=== PATIENT | male | born 1975 | race Caucasian/White ===

== ENCOUNTER → 2016-08-29 | Outpatient (CLI) | payer BC ==
[~2016-08-29] MED LIST: AMT25 PO; CALC-393 PO; CHOLCAP5 PO; CLON0.5T3 PO; GADAVIST IV PRN; MELO15TA10 PO; MELO15TA4 PO; MULT-506 PO; NRN300 PO; OXYC1TAB3 PO; PROP40TA5 PO; SERT-234 PO; VNTHFA/IN INH; ZLF/100 PO
--- NOTE | 2016-08-29 13:07 | DIAGNOSTIC IMAGING REPORT ---
CT SCAN OF THE ABDOMEN AND PELVIS WITHOUT CONTRAST CLINICAL HISTORY: Non-Hodgkin's lymphoma COMPARISON STUDY: 07/26/2015 TECHNIQUE: CT scan of the abdomen and pelvis was performed from the lung bases to the proximal femurs. Images are reviewed in the axial, sagittal, and coronal planes. IV contrast was not administered for this examination. CT DOSE: 626.98 mGycm FINDINGS: Lower chest: The heart is normal in size and configuration, without pericardial effusion. The lung bases and pleural spaces are clear. Liver: The unenhanced liver is normal in size, contour, and attenuation. There is no intrahepatic biliary ductal dilatation. Gallbladder: Unremarkable. Spleen: The spleen measures 12 cm in length. No focal masses are visualized. Pancreas: There is a stable 5 mm hypodensity within the pancreatic tail. Adrenal glands: Unremarkable. Kidneys: The unenhanced kidneys are normal in size without hydronephrosis. There is no contour deforming renal mass lesion. No renal calculi are identified. Bowel: There are no transition zones indicate bowel obstruction. There is calcified appendicolith. There are no periappendiceal inflammatory changes. Peritoneum: There is no intraperitoneal free air or abdominal ascites. Vasculature: There is no evidence of abdominal aortic aneurysm. There is a left-sided inferior vena cava. Adenopathy: The lack of intravenous and oral contrast limits the study for the evaluation of pelvic lymphadenopathy. Soft tissue structures adjacent to the iliac vessels on the right, likely represent unopacified bowel loops. On subsequent studies, it would be beneficial to administer oral contrast. Pelvic viscera: The bladder, and pelvic viscera are unremarkable. Skeletal structures: There is an old fracture involving the lateral aspect of the L3 vertebra. IMPRESSION: 1. Sclerosis and old fracture deformity involving the right lateral aspect of the L3 vertebra 2. 12 cm spleen 3. Left-sided IVC 4. Stable 5 mm hypodensity within the pancreatic tail 5. Soft tissue structures within the pelvis abutting the right iliac vessels, likely representing unopacified bowel loops. As stated above, on subsequent studies. Would be beneficial to administer oral contrast to help differentiate bowel loops from adenopathy Electronically signed by: Steffen Gusman M.D. 08/29/2016 1:06 PM Dictated Date/Time: 08/29/2016 12:57 PM
--- NOTE | 2016-08-29 13:11 | DIAGNOSTIC IMAGING REPORT ---
CT OF THE CHEST WITHOUT IV CONTRAST CLINICAL HISTORY: Non-Hodgkin's lymphoma COMPARISON STUDY: Chest CT July 26, 2015 and PET/CT April 26, 2016. CT DOSE: 382.75 mGycm TECHNIQUE: Axial images of the chest were obtained without IV contrast. Images were reviewed in the axial, sagittal, and coronal planes. IV contrast was not administered for this examination. FINDINGS: A left subclavian [id number] is in place. No enlarged axillary, mediastinal or hilar lymph nodes are present. A 2 cm left lobe thyroid nodule is unchanged. The size of the heart is normal. There is no pericardial effusion. Left-sided gynecomastia is noted. The central airways are patent. There are no suspicious pulmonary nodules. No consolidation is present. No pneumothorax or pleural effusion is present. No suspicious osseous lesions are shown within the bony thorax. The abdomen and pelvis will be reported separately. IMPRESSION: No evidence of malignancy within the chest. No thoracic lymphadenopathy. Electronically signed by: Aba Sharp M.D. 08/29/2016 1:09 PM Dictated Date/Time: 08/29/2016 1:03 PM
--- NOTE | 2016-08-29 14:19 | DIAGNOSTIC IMAGING REPORT ---
LUMBAR SPINE MRI WITH AND WITHOUT CONTRAST HISTORY: NON HODGKIN'S LYMPHOMA/NO CONTRAST ON CT TECHNIQUE: Multiplanar multisequence MRI of the lumbar spine was performed both before and after the intravenous administration of contrast. COMPARISON: Lumbar spine MRI 06/20/2016. FINDINGS: For the purpose of the report the L5-S1 disc space will be located on axial image 26 of 28. Alignment and curvature intact. There are stable right-sided L3 vertebral body lesions resulting in a right sided pathologic compression fracture. These lesions demonstrate slight increased T2 signal and a small focus of enhancement best seen on axial image 13. This remains unchanged. No evidence for epidural extension. No new soft tissue masses or osseous lesion identified. The conus terminates at the L1-L2 disc space level. Fatty marrow replacement at the L2-L4 vertebral bodies consistent with prior radiation therapy. L1-L2: No significant central canal or neural foraminal narrowing. L2-L3: No significant central canal or neural foraminal narrowing. L3-L4: Small broad-based posterior disc bulge at L3-L4 without significant central canal or left-sided neural foraminal narrowing. There is moderate right-sided neural foraminal narrowing, unchanged. L4-L5: Small broad-based posterior disc bulge without central canal or neural foraminal narrowing. L5-S1: No significant central canal or neural foraminal narrowing. IMPRESSION: No significant change compared to the prior study. Right-sided L3 lesions are unchanged. No new vertebral body lesions or soft tissue masses identified. Electronically signed by: Ric Crawford M.D. 08/29/2016 2:17 PM Dictated Date/Time: 08/29/2016 2:04 PM
== END | disposition home or self-care (01) ==
LOC: C.CTS 12:31
PROVIDERS: ATTEND Internal Medicine Hematology & Oncology
DX: C85.10 Unspecified B-cell lymphoma, unspecified site (principal)

== ENCOUNTER → 2016-08-30 | Day surgery (SDC) | payer BC ==
[2016-08-23 15:50] VITALS: Ht 186.7 cm; Wt 93.2 kg
[~2016-08-30] VITALS: Ht 186.7 cm; Wt 93.2 kg
[~2016-08-30] MED LIST changes: -GADAVIST IV PRN; +IOPAMIDOL INJ 61% 15 ML VIAL ONE; +LIDOCAINE HCL 1% MPF 5 ML VIAL ONE; +SODIUM CHLORIDE 0.9% INJ 10 ML VIAL ONE
--- NOTE | 2016-08-30 14:02 | History & Physical Bridge - SC ---
H&P Re-Evaluation Bridge Note: I have examined the patient, reviewed the History & Physical and in the interval since the performance of the History & Physical I have noted the following changes of clinical significance: No changes noted
[2016-08-30 14:32] VITALS: BP 122/73; PULSE 67; TEMP 36.7; O2SAT 100
--- NOTE | 2016-08-30 14:37 | Discharge Instructions ---
Discharge Instructions Visit Reason for Visit: Lumbosacral Radiculopathy Discharge Discharge Diagnosis / Problem: Right leg pain Discharge Goals Goal(s): Decrease discomfort, Improve function Medications Stopped Medications Name(s): espinoza last dose sunday Activity Recommendations Activity Limitations: resume your previous activity Anesthesia . Post Anesthesia Instructions: If you have had General Anesthesia or IV Sedation: * Do not drive today. * Resume driving when surgeon permits. * Do not make important decisions or sign legal documents today. * Call surgeon for: 1. Temperature elevations greater than 101 degrees F. 2. Uncontrollable pain. 3. Excessive bleeding. 4. Persistent nausea and vomiting. 5. Medication intolerance (nausea, vomiting or rash). * For nausea and vomiting use only clear liquids such as: tea, soda, bouillon until nausea subsides, then gradually increase diet as tolerated. * If you have any concerns or questions, call your surgeon's office. If physician is unavailable and it is an emergency, call 911 or go to the nearest emergency room. . Diet Recommendations Recommended Home Diet: resume previous diet Procedures Procedures Performed: Lumbar Epidural Steroid Injection Pending Studies Studies pending at discharge: no Medical Emergencies . Who to Call and When: Medical Emergencies: If at any time you feel your situation is an emergency, please call 911 immediately. . Non-Emergent Contact Non-Emergency issues call your: Specialist . . "Provider Documentation" section prepared by Jose Francisco Sparks.
--- NOTE | 2016-08-30 15:02 | OPERATIVE REPORT ---
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 POSTOPERATIVE DIAGNOSIS: Same. PROCEDURE: Right paramedian L3-4 intralaminar epidural steroid injection under fluoroscopic guidance. INDICATIONS FOR PROCEDURE: The patient is a 41-year-old white male who presented to the clinic with complaints of radicular pain. His oncologist, Dr. Palomino, is treating him for the lymphoma. He presents today to provide him with an epidural injection to relieve some of the right lower extremity pain which is functionally limiting to him. PHYSICAL EXAMINATION: Pleasant male seated comfortably. He has some pain inhibition with testing of his right lower extremity. Intact sensation with a positive straight leg raise. CONSENT: Verbal and written consent was obtained from the patient. Risks and benefits were reviewed. Risks include but are not limited to epidural abscess, epidural hematoma, allergic reaction, dural puncture. The patient wishes to proceed. DESCRIPTION OF PROCEDURE: The patient was taken back to the special procedures room of the [facility] where he was maintained in a prone position. Backside was cleansed with chlorhexidine prep x3 and a dry sterile dressing was applied. Fluoroscope was used to identify the L3-4 intralaminar space and overlying skin on the right side was anesthetized with 4 mL of lidocaine 1% with a 25-gauge 1.5-inch needle. A 22-gauge 3.5-inch Tuohy needle was then directed down towards the intralaminar space. It was advanced under lateral fluoroscopic guidance and loss of resistance was noted at a depth of just over 6 cm. Isovue-300 contrast was not utilized given his sensitivity to IVP dye. He then underwent injection after negative aspiration of 40 mg of Depo-Medrol and 4 mL of preservative free sodium chloride. Injection was well tolerated. DISPOSITION: 1. The patient is taken out into the discharge recovery area where he will be discharged home once discharge criteria have been met. 2. Follow up in the [facility] office in 2-4 weeks. I attest to the content of the Intraoperative Record and any orders documented therein. Any exceptio ns are noted below.
== END | disposition home or self-care (01) ==
LOC: X.SURG 13:32
PROVIDERS: ATTEND Physical Medicine & Rehabilitation
DX: M54.16 Radiculopathy, lumbar region (principal); C83.38 Diffuse large B-cell lymphoma, lymph nodes of multiple sites

== ENCOUNTER 2016-09-03 17:50 | Emergency (ER) | payer BC ==
[~2016-09-03] VITALS: Ht 188 cm; Wt 96.4 kg
[~2016-09-03 17:50] MED LIST changes: -AMT25 PO; -CALC-393 PO; -CHOLCAP5 PO; -CLON0.5T3 PO; -IOPAMIDOL INJ 61% 15 ML VIAL ONE; -LIDOCAINE HCL 1% MPF 5 ML VIAL ONE; -MELO15TA4 PO; -MULT-506 PO; -OXYC1TAB3 PO; -PROP40TA5 PO; -SODIUM CHLORIDE 0.9% INJ 10 ML VIAL ONE; -VNTHFA/IN INH; -ZLF/100 PO
[2016-09-03 17:58] VITALS: TEMP 36.4; Ht 188 cm; Wt 96.4 kg
[2016-09-03 18:41] LABS: BASO % 0.3 %; BASO ABS # 0.02 K/uL (0-0.2); COMPLETE YES; EOS % 1.5 %; HEMATOCRIT 39.4 % (42-52); IG% 0.3 %; LYMPH % 27.5 %; LYMPH ABS # 1.62 K/uL (1.2-3.4); MEAN CELL VOLUME 86.8 fL (80-100); MEAN CORPUSCULAR HEMOGLOBIN 31.3 pg (25-34); MEAN PLATELET VOLUME 9.8 fL (7.4-10.4); MONO % 9.2 %; NEUT % 61.2 %; PLATELET COUNT 219 K/uL (130-400); RED BLOOD COUNT 4.54 M/uL (4.7-6.1)
--- NOTE | 2016-09-03 18:48 | DIAGNOSTIC IMAGING REPORT ---
CHEST ONE VIEW PORTABLE CLINICAL HISTORY: Right chest/breast pain COMPARISON STUDY: 05/11/2016 FINDINGS: The cardiac and mediastinal contours remain stable. There is a left-sided A-Port catheter. There is no failure. There is no focal pulmonary consolidation. There are no pleural effusions.[ IMPRESSION: No active disease in the chest. Electronically signed by: Steffen Gusman M.D. 09/03/2016 6:46 PM Dictated Date/Time: 09/03/2016 6:46 PM
[2016-09-03 19:01] LABS: BUN/CREATININE RATIO 17.6 (10-20); CALCIUM 9.3 mg/dl (8.5-10.1); POTASSIUM 4.2 mmol/L (3.5-5.1)
[2016-09-03 19:16] LABS: URINE APPEARANCE CLEAR (CLEAR); URINE BILIRUBIN NEG (NEG); URINE COLOR YELLOW; URINE EPITHELIAL CELL AUTO 0-5 /lpf (0-5); URINE NITRITE NEG (NEG); UROBILINOGEN NEG (NEG); ZZUR CULT IF INDIC CLEAN CATCH NO
[2016-09-03 19:20] LABS: MANUAL MICROSCOPIC REQUIRED? NO; REVIEW REQ? NO
--- NOTE | 2016-09-03 19:58 | DIAGNOSTIC IMAGING REPORT ---
LEFT BREAST ULTRASONOGRAPHY CLINICAL HISTORY: Left breast mass and pain. COMPARISON STUDY: Chest CT dated 08/29/2016 FINDINGS: Ultrasonographic evaluation reveals no suspicious masses. There is an area of presumed gynecomastia. If symptoms persist, evaluation diagnostic breast Center should be considered in follow-up. IMPRESSION: 1. Ultrasonographic findings consistent with gynecomastia. 2. If the patient has a clinically suspicious palpable mass, then evaluation at the diagnostic breast Center should be considered in follow-up. Electronically signed by: Steffen Gusman M.D. 09/03/2016 7:56 PM Dictated Date/Time: 09/03/2016 7:52 PM
[2016-09-03 21:07] VITALS: BP 128/73; PULSE 70; O2SAT 96
--- NOTE | 2016-09-03 22:49 | EMERGENCY ROOM VISIT NOTE ---
History Report prepared by Ben: Mode Arcos Under the Supervision of: Dr. Isrrael Torres D.O. First contact with patient: 18:17 Chief Complaint: CHEST PAIN Stated Complaint: CHEST PAIN History of Present Illness The patient is a 41 year old male who presents to the Emergency Room with complaints of persistent chest pain for the past month. The patient has a history of lymphoma in his 3rd lumbar vertebrae. He received treatment finishing in March which left him with no signs of cancer but damage to his 3rd vertebrae causing him right leg pain. He was put on Gabapentin in July for the pain. He notes around the same time he started this medication he began experiencing chest pain in a specific spot around his left breast. He notes that at times the nipple will hurt. He notes that he was experiencing side effects from Gabapentin so he stopped it a few weeks ago. He recently started taking the medication again for the leg discomfort and noticed his chest pain symptoms getting worse. Today, he presented to the ED because his left breast was swollen and the spot of discomfort was larger. The patient saw Dr. Palomino on August 15 and had blood work, MRI, and a CT which all came back stable. Pt denies headache, change in vision, fevers, chills, chest pain, shortness of breath, nausea, vomiting, diarrhea, pain with urination, melena, discharge or redness from nipple, pain down his arm, or shortness of breath. Source of History: patient Onset: the past month Position: chest (left) Timing: other (persistent) Associated Symptoms: No SOB, No chest pain, No chills, No diarrhea, No fevers, No headache, No nausea, No urinary symptoms, No vomiting Note: Other associated symptoms: nipple pain, swollen left breast Denies: change in vision, discharge or redness from nipple, pain down his arm Review of Systems See HPI for pertinent positives & negatives. A total of 10 systems reviewed and were otherwise negative. Past Medical & Surgical Medical Problems: (1) Anxiety (2) B-cell lymphoma (3) Fracture of L3 vertebra Family History Cancer Diabetes mellitus Heart disease Hypertension Seizures Social History Smoking Status: Never Smoker Alcohol Use: occasionally Drug Use: none Marital Status: Housing Status: lives with family Occupation Status: employed Current/Historical Medications Scheduled Calcium Carbonate (Calcium), 1,200 MG PO DAILY Cholecalciferol (Vitamin D3), 1 CAP PO QAM Gabapentin (Gabapentin), 1 CAP PO TID Meloxicam (Mobic), 15 MG PO QAM Sertraline (Zoloft), 200 MG PO QAM Scheduled PRN Albuterol Hfa (Ventolin Hfa), 2-4 PUFFS INH Q6H PRN for Shortness of Breath Clonazepam (Klonopin), 0.5 MG PO DIRECTED PRN for Anxiety Allergies Coded Allergies: Iodine (Verified Allergy, Severe, throat swells, hives, 08/30/16) Iodinated Diagnostic Agents (Verified Allergy, Unknown, THROAT SWELLS, HIVES, 08/30/16) Physical Exam Vital Signs Date Time Temp Pulse Resp B/P Pulse Ox O2 Delivery O2 Flow Rate FiO2 09/03/16 21:07 70 20 128/73 96 09/03/16 19:07 71 20 125/67 100 Room Air 09/03/16 18:14 Room Air 09/03/16 18:12 69 09/03/16 17:58 36.4 70 18 136/80 Room Air Physical Exam GENERAL: sitting up in bed, anxious, non-toxic EYE EXAM: normal conjunctiva, PERRL and EOM's grossly intact OROPHARYNX: no exudate, no erythema, lips, buccal mucosa, and tongue normal and mucous membranes are moist NECK: supple, no nuchal rigidity, no adenopathy, non-tender LUNGS: Clear to auscultation. Normal chest wall mechanics HEART: no murmurs, S1 normal and S2 normal ABDOMEN: abdomen soft, non-tender, normo-active bowel sounds, no masses, no rebound or guarding. BACK: Back is symmetrical on inspection and there is no deformity, no midline tenderness, no CVA tenderness. SKIN: no rashes and no bruising UPPER EXTREMITIES: upper extremities are grossly normal. No axillary lymph node swelling. LOWER EXTREMITIES: No pitting edema. NEURO EXAM: Normal sensorium, cranial nerves II-XII grossly intact, normal speech, no gross weakness of arms, no gross weakness of legs Gross sensation intact. BREAST: Fullness within left breast, tender above nipple. No erythema or induration Medical Decision & Procedures ER Provider Diagnostic Interpretation: Xray results per the radiologist and my interpretation. Other results have been interpreted by the radiologist and reviewed by me. CHEST ONE VIEW PORTABLE CLINICAL HISTORY: Right chest/breast pain COMPARISON STUDY: 05/11/2016 FINDINGS: The cardiac and mediastinal contours remain stable. There is a left-sided A-Port catheter. There is no failure. There is no focal pulmonary consolidation. There are no pleural effusions.[ IMPRESSION: No active disease in the chest. Electronically signed by: Steffen Gusman M.D. 09/03/2016 6:46 PM Dictated Date/Time: 09/03/2016 6:46 PM LEFT BREAST ULTRASONOGRAPHY CLINICAL HISTORY: Left breast mass and pain. COMPARISON STUDY: Chest CT dated 08/29/2016 FINDINGS: Ultrasonographic evaluation reveals no suspicious masses. There is an area of presumed gynecomastia. If symptoms persist, evaluation diagnostic breast Center should be considered in follow-up. IMPRESSION: 1. Ultrasonographic findings consistent with gynecomastia. 2. If the patient has a clinically suspicious palpable mass, then evaluation at the diagnostic breast Center should be considered in follow-up. Electronically signed by: Steffen Gusman M.D. 09/03/2016 7:56 PM Dictated Date/Time: 09/03/2016 7:52 PM Laboratory Results 09/03/16 18:20 Red Blood Count 4.54, Mean Corpuscular Volume 86.8, Mean Corpuscular Hemoglobin 31.3, Mean Corpuscular Hemoglobin Concent 36.0, Mean Platelet Volume 9.8, Neutrophils (%) (Auto) 61.2, Lymphocytes (%) (Auto) 27.5, Monocytes (%) (Auto) 9.2, Eosinophils (%) (Auto) 1.5, Basophils (%) (Auto) 0.3, Neutrophils # (Auto) 3.61, Lymphocytes # (Auto) 1.62, Monocytes # (Auto) 0.54, Eosinophils # (Auto) 0.09, Basophils # (Auto) 0.02 09/03/16 18:20 Test 09/03/16 18:20 09/03/16 19:05 White Blood Count 5.90 K/uL (4.8-10.8) Red Blood Count 4.54 M/uL (4.7-6.1) Hemoglobin 14.2 g/dL (14.0-18.0) Hematocrit 39.4 % (42-52) Mean Corpuscular Volume 86.8 fL (80-100) Mean Corpuscular Hemoglobin 31.3 pg (25-34) Mean Corpuscular Hemoglobin Concent 36.0 g/dl (32-36) Platelet Count 219 K/uL (130-400) Mean Platelet Volume 9.8 fL (7.4-10.4) Neutrophils (%) (Auto) 61.2 % Lymphocytes (%) (Auto) 27.5 % Monocytes (%) (Auto) 9.2 % Eosinophils (%) (Auto) 1.5 % Basophils (%) (Auto) 0.3 % Neutrophils # (Auto) 3.61 K/uL (1.4-6.5) Lymphocytes # (Auto) 1.62 K/uL (1.2-3.4) Monocytes # (Auto) 0.54 K/uL (0.11-0.59) Eosinophils # (Auto) 0.09 K/uL (0-0.5) Basophils # (Auto) 0.02 K/uL (0-0.2) RDW Standard Deviation 42.5 fL (36.4-46.3) RDW Coefficient of Variation 13.5 % (11.5-14.5) Immature Granulocyte % (Auto) 0.3 % Immature Granulocyte # (Auto) 0.02 K/uL (0.00-0.02) Anion Gap 11.0 mmol/L (3-11) Est Creatinine Clear Calc Drug Dose 114.2 ml/min Estimated GFR () 108.6 Estimated GFR (Non- 93.7 BUN/Creatinine Ratio 17.6 (10-20) Calcium Level 9.3 mg/dl (8.5-10.1) Total Bilirubin 0.7 mg/dl (0.2-1) Direct Bilirubin 0.2 mg/dl (0-0.2) Aspartate Amino Transf (AST/SGOT) 30 U/L (15-37) Alanine Aminotransferase (ALT/SGPT) 36 U/L (12-78) Alkaline Phosphatase 54 U/L (45-117) Total Protein 6.9 gm/dl (6.4-8.2) Albumin 4.0 gm/dl (3.4-5.0) Lipase 151 U/L (73-393) Urine Color YELLOW Urine Appearance CLEAR (CLEAR) Urine pH 7.0 (4.5-7.5) Urine Specific [place] 1.000 (1.000-1.030) Urine Protein NEG (NEG) Urine Glucose (UA) NEG (NEG) Urine Ketones NEG (NEG) Urine Occult Blood NEG (NEG) Urine Nitrite NEG (NEG) Urine Bilirubin NEG (NEG) Urine Urobilinogen NEG (NEG) Urine Leukocyte Esterase NEG (NEG) Urine WBC (Auto) 0 /hpf (0-5) Urine RBC (Auto) 0-4 /hpf (0-4) Urine Hyaline Casts (Auto) 0 /lpf (0-5) Urine Epithelial Cells (Auto) 0-5 /lpf (0-5) Urine Bacteria (Auto) NEG (NEG) Laboratory results per my review. ED Course ED COURSE: Vital signs were reviewed and showed normal The patients medical record was reviewed The above diagnostic studies were performed and reviewed. ED treatments and interventions as stated above. 1817: The patient was evaluated in room B12. A complete history and physical examination was performed. 1910: At this time, I discussed the patient's case with Dr. Palomino [facility] and he agreed with the treatment plan. 2101: Upon reevaluation, the patient is resting.I discussed my findings with the patient and he understands and agrees with the treatment plan. Based on the patients age, coexisting illnesses, exam and lab findings the decision to treat as an outpatient was made. The patient remained stable while under my care. The patient appeared well at the time of discharge. Medical Decision Differential diagnoses includes but is not limited to acute coronary syndrome, myocardial infarction, pericarditis, pulmonary embolus, aortic dissection, pneumonia, pneumothorax, musculoskeletal, shingles, esophageal. Patient is a 41-year-old male who presents the ER for pain and swelling of his left breast. He notes this has been going on for the past several days. He does have a history of metastatic cancer which has been in remission the past several months. He follows with hematology oncology. Just had a CT of his chest abdomen and pelvis performed on 08/29/2016 which showed no obvious recurrence of the cancer in his chest. On exam he does have fullness of his left breast. No discharge. No signs of cellulitis or abscess. CBC along with BMP, LFTs and bilirubin were unremarkable. UA was negative. Ultrasound shows no focal mass. Chest x-ray was unremarkable. Discussed case with Dr. Palomino who agrees that this is likely secondary to gynecomastia. I updated the patient regards to this. Shortened follow up with his primary care doctor. Discussed with Pt concerning signs and symptoms to watch out for. Pt was instructed to follow up with their PCP and discussed with the patient their option to return to the ED at anytime for persistent or worsening symptoms. The appropriate anticipatory guidance and out-patient management, including indications for return to the emergency department, were explained at length to the patient and understood. Consults Time Called: 1905 Consulting Physician: Dr. Palomino - [facility] Returned Call: 1910 At this time, I discussed the patient's case with Dr. Palomino and he agreed with the treatment plan. Impression Primary Impression: Gynecomastia Scribe Attestation The scribe's documentation has been prepared under my direction and personally reviewed by me in its entirety. I confirm that the note above accurately reflects all work, treatment, procedures, and medical decision making performed by me. Departure Information Dispostion Home / Self-Care Referrals Gaurav Blue M.D. (PCP) Forms HOME CARE DOCUMENTATION FORM, IMPORTANT VISIT INFORMATION Patient Instructions My [facility] Additional Instructions Please follow up with your primary care doctor or if you are a student [facility] with in the next 24 hours. Any worsening of your symptoms, please return to the ED immediately. This includes any fevers greater than under 0.4, worsening pain, worsening swelling, swelling of the lymph nodes, or any other concerning signs or symptoms from your standpoint. Gynecomastia is a swelling of one or both breast. This can because by the imbalance of hormones. This is the likely cause of the swelling of your left breast especially since you had a negative CT and unremarkable ultrasound. Please follow-up with your primary care doctor in regards to this. Please take Motrin or Tylenol as needed for pain.
[2017-03-20] MEDS ORDERED: MULT-506 PO (10:56)
== END 2016-09-03 21:15 | disposition home or self-care (01) ==
LOC: C.EDB 17:51
DX: N62 Hypertrophy of breast (principal); Z79.899 Other long term (current) drug therapy; Z79.1 Long term (current) use of non-steroidal anti-inflammatories (NSAID); Z85.72 Personal history of non-Hodgkin lymphomas; Z83.3 Family history of diabetes mellitus; Z82.49 Family history of ischemic heart disease and other diseases of the circulatory system

== ENCOUNTER → 2016-10-03 | Outpatient (CLI) | payer BC ==
[~2016-10-03] MED LIST changes: +AMT25 PO; +CALC-393 PO; +CHOLCAP5 PO; +CLON0.5T3 PO; +MELO15TA4 PO; +MULT-506 PO; +OXYC1TAB3 PO; +PROP40TA5 PO; +VNTHFA/IN INH; +ZLF/100 PO
--- NOTE | 2016-10-03 13:16 | DIAGNOSTIC IMAGING REPORT ---
RIGHT KNEE 4 VIEWS INCLUDING BILATERAL STANDING AP VIEWS CLINICAL HISTORY: Right knee pain HISTORY OF LYMPHOMA COMPARISON: None. DISCUSSION: No fractures or subluxations are visualized. There are no erosive or destructive changes. The joint spaces appear normal for age. There is no evidence for soft tissue swelling. IMPRESSION: Unremarkable conventional radiographic evaluation of the right knee. Electronically signed by: Steffen Gusman M.D. 10/03/2016 1:15 PM Dictated Date/Time: 10/03/2016 1:14 PM
== END | disposition home or self-care (01) ==
LOC: C.RDSM 08:28
PROVIDERS: ATTEND Physical Medicine & Rehabilitation
DX: M54.17 Radiculopathy, lumbosacral region (principal); M54.16 Radiculopathy, lumbar region; M25.561 Pain in right knee

== ENCOUNTER 2016-10-18 14:42 | Emergency (ER) | payer BC ==
[~2016-10-18] VITALS: Ht 177.8 cm; Wt 96.0 kg
[~2016-10-18 14:42] MED LIST changes: -AMT25 PO; -CALC-393 PO; -CHOLCAP5 PO; -CLON0.5T3 PO; -MELO15TA4 PO; -MULT-506 PO; -OXYC1TAB3 PO; -PROP40TA5 PO; -VNTHFA/IN INH; -ZLF/100 PO
[2016-10-18 14:48] VITALS: TEMP 36.8; Ht 177.8 cm; Wt 96.0 kg
[2016-10-18] MEDS ORDERED: ZLF/100 PO (15:14)
[2016-10-18] MEDS ORDERED: AMT25 PO (15:14)
[2016-10-18] MEDS ORDERED: MELO15TA4 PO (15:14)
[2016-10-18] MEDS ORDERED: SODIUM CHLORIDE 0.9% 1000ML 1,000 ML IV STA (15:33)
[2016-10-18] MEDS ORDERED: CHOLCAP5 PO (15:50)
[2016-10-18] MEDS ORDERED: CLON0.5T3 PO (15:50)
[2016-10-18 15:52] LABS: BASO % 0.3 %; BASO ABS # 0.02 K/uL (0-0.2); COMPLETE YES; EOS % 0.8 %; HEMATOCRIT 43.6 % (42-52); IG% 0.2 %; LYMPH % 24.9 %; LYMPH ABS # 1.54 K/uL (1.2-3.4); MEAN CELL VOLUME 86.2 fL (80-100); MEAN CORPUSCULAR HEMOGLOBIN 31.4 pg (25-34); MEAN CORPUSCULAR HGB CONC 36.5 g/dl (32-36); MEAN PLATELET VOLUME 9.9 fL (7.4-10.4); MONO % 11.5 %; NEUT % 62.3 %; PLATELET COUNT 251 K/uL (130-400); RED BLOOD COUNT 5.06 M/uL (4.7-6.1); WHITE BLOOD COUNT 6.19 K/uL (4.8-10.8)
[2016-10-18] MEDS ORDERED: VNTHFA/IN INH (15:53)
--- NOTE | 2016-10-18 16:00 | DIAGNOSTIC IMAGING REPORT ---
ABDOMEN AND PELVIS CT WITHOUT CONTRAST CT DOSE: 391.03 mGy.cm HISTORY: Left lower quadrant abdominal pain. History of lymphoma. TECHNIQUE: Multiaxial CT images of the abdomen and pelvis were performed without contrast. COMPARISON STUDY: Abdomen and pelvis CT 08/29/2016. FINDINGS: The lung bases are clear. No pneumoperitoneum. No pneumatosis. No change in the right L3 vertebral body old fracture deformity and sclerosis. The unenhanced liver, gallbladder, spleen, adrenal glands, pancreas, and kidneys are unremarkable. There is a left-sided IVC. No abdominal or pelvic lymphadenopathy. Normal bladder. Suboptimal evaluation for bowel pathology due to the lack of intravenous and oral contrast. However, there is no definite bowel wall thickening or obstruction. Normal caliber appendix. There is a 4 mm appendicolith within the mid appendix. IMPRESSION: 1. No change compared to the prior study. 2. No definite bowel wall thickening or obstruction. 3. A 4 mm appendicolith. No evidence for appendicitis. 4. No change in the sclerosis and old fracture deformity within the right side of the L3 vertebral body. 5. Left-sided IVC. 6. No lymphadenopathy within the abdomen or pelvis. Electronically signed by: Ric Crawford M.D. 10/18/2016 3:59 PM Dictated Date/Time: 10/18/2016 3:50 PM
[2016-10-18 16:08] LABS: BUN/CREATININE RATIO 13.4 (10-20); CALCIUM 9.3 mg/dl (8.5-10.1); CREATININE 1.1 mg/dl (0.60-1.40); POTASSIUM 3.9 mmol/L (3.5-5.1)
[2016-10-18 16:11] LABS: ALB/GLOB RATIO 1.2 (0.9-2)
[2016-10-18 16:20] LABS: URINE APPEARANCE CLEAR (CLEAR); URINE BILIRUBIN NEG (NEG); URINE COLOR YELLOW; URINE NITRITE NEG (NEG); URINE PH 7.5 (4.5-7.5); URINE SPECIFIC GRAVITY 1.001 (1.000-1.030); UROBILINOGEN NEG (NEG); ZZUR CULT IF INDIC CLEAN CATCH NO
[2016-10-18 16:26] LABS: MANUAL MICROSCOPIC REQUIRED? NO; REVIEW REQ? NO
[2016-10-18] MEDS ORDERED: KETOROLAC TROMETHAMINE 30 MG/ML VIAL IV STA (16:29)
[2016-10-18] MEDS ORDERED: DiphenhydrAMINE HCL 50 MG/ML VIAL IV STA (16:29)
--- NOTE | 2016-10-18 17:11 | EMERGENCY ROOM VISIT NOTE ---
History First contact with patient: 15:07 Chief Complaint: ABDOMINAL PAIN Stated Complaint: STOMACH PAIN Nursing Triage Summary: Pt c/o lower Abdominal pain with nausea. Pt noticed blood in stool. Pt has history of lymphoma History of Present Illness The patient is a 41 year old male with past medical history of primary bone lymphoma, IBS and celiac who presents to the Emergency Room for evaluation of abdominal pain. The patient states that he has had pain in the center of his abdomen for the past 3 days. He states it has been progressively worsening and rates the discomfort a 5/10 at this time. He has also had nausea and persistent headaches. They are not the worst headache of his life. He does report there have been some dark spots in his stool, but no emerson blood. He has been taking Pepto-Bismol at home. His bowel movements have been normal for him. He denies any dietary changes. He does feel that his urine has been more concentrated than normal. The patient has a history of lymphoma and follows with Dr. Palomino. He has a PET scan scheduled next month. He has received chemotherapy and reports no concerns other than a lump in his left breast which they think is secondary to gynecomastia. He has also seen [facility] gastroenterology for IBS and celiac disease in the past. He denies any vomiting , fevers, cough, shortness of breath, or urinary symptoms. Review of Systems A complete 10-point Review of Systems was discussed with the patient, with pertinent positives and negatives listed in the History of Present Illness. All remaining Review of Systems questions can be considered negative unless otherwise specified. Past Medical/Surgical History Medical Problems: (1) Anxiety (2) B-cell lymphoma (3) Fracture of L3 vertebra Family History Cancer Diabetes mellitus Heart disease Hypertension Seizures Social History Smoking Status: Never Smoker Alcohol Use: occasionally Drug Use: none Marital Status: Housing Status: lives with family Occupation Status: employed Current/Historical Medications Scheduled Amitriptyline HCl (Amitriptyline HCl), 25 MG PO HS Calcium Carbonate (Calcium), 1,200 MG PO DAILY Cholecalciferol (Vitamin D3), 5,000 INTER.UNIT PO QAM Meloxicam (Meloxicam), 15 MG PO QAM Sertraline HCl (Sertraline HCl), 200 MG PO QAM Scheduled PRN Albuterol Hfa (Ventolin Hfa), 2-4 PUFFS INH Q6H PRN for Shortness of Breath Clonazepam (Klonopin), 0.5 MG PO BID PRN for Anxiety Allergies Coded Allergies: Iodine (Verified Allergy, Severe, throat swells, hives, 08/30/16) Iodinated Diagnostic Agents (Verified Allergy, Unknown, THROAT SWELLS, HIVES, 08/30/16) Physical Exam Vital Signs Date Time Temp Pulse Resp B/P Pulse Ox O2 Delivery O2 Flow Rate FiO2 10/18/16 17:49 82 18 113/79 98 Room Air 10/18/16 16:48 81 18 116/80 99 Room Air 10/18/16 14:48 36.8 91 16 126/81 98 Room Air Physical Exam VITALS: Vitals are noted on the nurse's note and reviewed by myself. Vital signs stable. GENERAL: This is a 41-year-old male, in no acute distress, nondiaphoretic, well- developed well-nourished. SKIN: Capillary reflex less than 2 seconds. HEENT: Normocephalic. PERRLA. EOMI. Nares patent. Mucous membranes moist. Neck is supple without nuchal rigidity. HEART: Regular rate and rhythm without murmurs gallops or rubs. LUNGS: Clear to auscultation bilaterally without wheezes, rales or rhonchi. ABDOMEN: Positive bowel sounds x 4. Soft, mild tenderness in the periumbilical region. No guarding or rebound tenderness. NEURO: Patient was alert and oriented to person place and time. Medical Decision & Procedures ER Provider Diagnostic Interpretation: ABDOMEN AND PELVIS CT WITHOUT CONTRAST CT DOSE: 391.03 mGy.cm HISTORY: Left lower quadrant abdominal pain. History of lymphoma. TECHNIQUE: Multiaxial CT images of the abdomen and pelvis were performed without contrast. COMPARISON STUDY: Abdomen and pelvis CT 08/29/2016. FINDINGS: The lung bases are clear. No pneumoperitoneum. No pneumatosis. No change in the right L3 vertebral body old fracture deformity and sclerosis. The unenhanced liver, gallbladder, spleen, adrenal glands, pancreas, and kidneys are unremarkable. There is a left-sided IVC. No abdominal or pelvic lymphadenopathy. Normal bladder. Suboptimal evaluation for bowel pathology due to the lack of intravenous and oral contrast. However, there is no definite bowel wall thickening or obstruction. Normal caliber appendix. There is a 4 mm appendicolith within the mid appendix. IMPRESSION: 1. No change compared to the prior study. 2. No definite bowel wall thickening or obstruction. 3. A 4 mm appendicolith. No evidence for appendicitis. 4. No change in the sclerosis and old fracture deformity within the right side of the L3 vertebral body. 5. Left-sided IVC. 6. No lymphadenopathy within the abdomen or pelvis. Laboratory Results 10/18/16 15:32 Red Blood Count 5.06, Mean Corpuscular Volume 86.2, Mean Corpuscular Hemoglobin 31.4, Mean Corpuscular Hemoglobin Concent 36.5, Mean Platelet Volume 9.9, Neutrophils (%) (Auto) 62.3, Lymphocytes (%) (Auto) 24.9, Monocytes (%) (Auto) 11.5, Eosinophils (%) (Auto) 0.8, Basophils (%) (Auto) 0.3, Neutrophils # (Auto ) 3.86, Lymphocytes # (Auto) 1.54, Monocytes # (Auto) 0.71, Eosinophils # (Auto ) 0.05, Basophils # (Auto) 0.02 10/18/16 15:32 Test 10/18/16 15:28 10/18/16 15:32 Urine Color YELLOW Urine Appearance CLEAR (CLEAR) Urine pH 7.5 (4.5-7.5) Urine Specific [place] 1.001 (1.000-1.030) Urine Protein NEG (NEG) Urine Glucose (UA) NEG (NEG) Urine Ketones NEG (NEG) Urine Occult Blood NEG (NEG) Urine Nitrite NEG (NEG) Urine Bilirubin NEG (NEG) Urine Urobilinogen NEG (NEG) Urine Leukocyte Esterase NEG (NEG) White Blood Count 6.19 K/uL (4.8-10.8) Red Blood Count 5.06 M/uL (4.7-6.1) Hemoglobin 15.9 g/dL (14.0-18.0) Hematocrit 43.6 % (42-52) Mean Corpuscular Volume 86.2 fL (80-100) Mean Corpuscular Hemoglobin 31.4 pg (25-34) Mean Corpuscular Hemoglobin Concent 36.5 g/dl (32-36) Platelet Count 251 K/uL (130-400) Mean Platelet Volume 9.9 fL (7.4-10.4) Neutrophils (%) (Auto) 62.3 % Lymphocytes (%) (Auto) 24.9 % Monocytes (%) (Auto) 11.5 % Eosinophils (%) (Auto) 0.8 % Basophils (%) (Auto) 0.3 % Neutrophils # (Auto) 3.86 K/uL (1.4-6.5) Lymphocytes # (Auto) 1.54 K/uL (1.2-3.4) Monocytes # (Auto) 0.71 K/uL (0.11-0.59) Eosinophils # (Auto) 0.05 K/uL (0-0.5) Basophils # (Auto) 0.02 K/uL (0-0.2) RDW Standard Deviation 41.6 fL (36.4-46.3) RDW Coefficient of Variation 13.2 % (11.5-14.5) Immature Granulocyte % (Auto) 0.2 % Immature Granulocyte # (Auto) 0.01 K/uL (0.00-0.02) Anion Gap 8.0 mmol/L (3-11) Est Creatinine Clear Calc Drug Dose 103.8 ml/min Estimated GFR () 96.8 Estimated GFR (Non- 83.5 BUN/Creatinine Ratio 13.4 (10-20) Calcium Level 9.3 mg/dl (8.5-10.1) Total Bilirubin 0.9 mg/dl (0.2-1) Aspartate Amino Transf (AST/SGOT) 26 U/L (15-37) Alanine Aminotransferase (ALT/SGPT) 40 U/L (12-78) Alkaline Phosphatase 62 U/L (45-117) Total Protein 8.0 gm/dl (6.4-8.2) Albumin 4.4 gm/dl (3.4-5.0) Globulin 3.6 gm/dl (2.5-4.0) Albumin/Globulin Ratio 1.2 (0.9-2) Lipase 150 U/L (73-393) Medications Administered Medications (Trade) Dose Ordered Sig/Aris Route Start Time Stop Time Status Last Admin Dose Admin Sodium Chloride (Nss 1000ml) 1,000 ml @ 999 mls/hr Q1H1M STAT IV 10/18/16 15:33 10/18/16 16:33 DC 10/18/16 16:10 999 MLS/HR Ketorolac Tromethamine (Toradol Inj) 30 mg NOW STAT IV 10/18/16 16:29 10/18/16 16:31 DC 10/18/16 16:47 30 MG Diphenhydramine HCl (Benadryl Inj) 25 mg NOW STAT IV 10/18/16 16:29 10/18/16 16:31 DC 10/18/16 16:47 25 MG Medical Decision Differential diagnosis includes mesenteric adenitis, malignancy, cholecystitis, appendicitis, gastroenteritis, renal calculus, UTI, gastritis, among others. The patient was evaluated as above. Labs were drawn and IV access was obtained. Imaging studies were performed and read by radiology as above. The patient was medicated with 1 L normal saline solution. He was given 25 mg Benadryl and 30 Motrin grams Toradol IV for his headache. The patient was reassessed multiple times during their stay in the emergency department and remained in stable condition. The patient is a 41-year-old male who presents today complaining of periumbilical abdominal pain. Labs revealed no leukocytosis, anemia or concerning blood showed abnormality. Urinalysis was not suggestive of infection. CT of the abdomen and pelvis was performed and showed no acute findings. CT was performed without IV or oral contrast due to the patient's contrast dye allergy. The patient was informed of these findings. 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 The patient did report dark stools, likely secondary to his Pepto-Bismol use. The patient was also instructed to follow-up with his primary care provider and oncologist. He was instructed to return if he does develop any new/concerning symptoms or worsening of his current condition. Based on the patient's presentation, lab results, and imaging studies, I feel the patient is stable for outpatient treatment. The patient's case was reviewed with Dr. Haas, ED attending physician, who agreed with my assessment and treatment plan. Discharge instructions were reviewed with the patient. The patient verbalized understanding of my assessment and treatment plan and was discharged home in good condition. Impression Primary Impression: Periumbilical abdominal pain Departure Information Dispostion Home / Self-Care Condition GOOD Referrals Bing Youssef D.O. (PCP) Patient Instructions My [facility] Additional Instructions You have been treated in the Emergency Department your Abdominal Pain. Laboratory results and imaging studies have ruled out any emergent causes for your abdominal pain which would warrant admission or surgery. Prilosec, 20 mg daily. This is an over the counter medication. For pain control, you can use the following [id number] medicines (if >12 yo): - Regular strength (325mg/tab) Tylenol (acetaminophen) 2 tabs every 4-6 hours as needed. Do not exceed 12 tablets in a 24 hour period. Avoid taking more than 4 grams (4000 mg) of Tylenol per day. This includes any other sources of acetaminophen you may take on a regular basis. - Regular strength (200 mg/tab) Advil (ibuprofen) 1-2 tabs every 4-6 hours as needed. Do not exceed a dose of 3200 mg per day. Drink plenty of water and stay well hydrated. As with any trip to the Emergency Department, you should follow-up with your Primary Care Provider from today's visit. Call your postal mail carrier tomorrow to schedule follow up within 4-5 days for further evaluation of your abdominal pain. Return to the emergency department if your symptoms persist despite treatment plan outlined above or if the following symptoms occur: fevers, chills, vomiting , blood in your stool or urine, or any other new/concerning symptoms.
[2016-10-18 17:49] VITALS: BP 113/79; PULSE 82; O2SAT 98
[2016-10-18] MEDS ORDERED: CALC-393 PO (18:41)
[2017-03-20] MEDS ORDERED: MULT-506 PO (10:56)
== END 2016-10-18 17:57 | disposition home or self-care (01) ==
LOC: C.EDB 14:44
DX: R10.33 Periumbilical pain (principal); F41.9 Anxiety disorder, unspecified; C85.10 Unspecified B-cell lymphoma, unspecified site; Z79.899 Other long term (current) drug therapy; Z91.09 Other allergy status, other than to drugs and biological substances; Z80.9 Family history of malignant neoplasm, unspecified; Z83.3 Family history of diabetes mellitus; Z82.49 Family history of ischemic heart disease and other diseases of the circulatory system; Z82.0 Family history of epilepsy and other diseases of the nervous system

== ENCOUNTER → 2016-11-13 | Outpatient (CLI) | payer BC ==
[~2016-11-13] MED LIST changes: +AMT25 PO; +CALC-393 PO; +CHOLCAP5 PO; +CLON0.5T3 PO; -MELO15TA10 PO; +MELO15TA4 PO; +MULT-506 PO; -NRN300 PO; +OXYC1TAB3 PO; +PROP40TA5 PO; -SERT-234 PO; +VNTHFA/IN INH; +ZLF/100 PO
--- NOTE | 2016-11-14 16:28 | DIAGNOSTIC IMAGING REPORT ---
PET/CT HISTORY: LYMPHOMA TECHNIQUE: PET/CT was performed from the base of the skull through the pelvis following the intravenous administration of 13.4 mCi of F18-FDG. Non-contrast CT imaging was performed over the same range without breath-hold for attenuation correction of PET images and anatomic correlation, but not for primary interpretation as it is not of standard diagnostic quality. CT DOSE: 179.08 mGycm COMPARISON: Abdomen and pelvis CT 10/18/2016. PET CT 04/26/2016 FINDINGS: HEAD AND NECK: There is no FDG-avid disease or significant lymphadenopathy in the imaged portions of the head and the neck. A 1.9 cm hypodense left lobe thyroid nodules again noted. A left subclavian Xzylnl-a-Gizc remains in place. FDG uptake within the oropharynx and tongue is likely physiologic. CHEST: There is no FDG-avid disease in the chest. There is no axillary, mediastinal, or hilar lymphadenopathy. There is no pleural or pericardial effusion. There is no air-space disease or suspicious lung nodule. ABDOMEN/PELVIS: Below the diaphragm, tracer is distributed physiologically in the gastrointestinal and genitourinary tracts. There is no significant lymphadenopathy and no FDG-avid disease. Left-sided IVC. MUSCULOSKELETAL: No abnormal skeletal uptake is identified. Note is again made of the pathologic L3 fracture with 2 lesions noted along the right aspect of the L3 vertebral body. The appearance is similar to prior PET/CT. IMPRESSION: 1. No abnormal FDG uptake identified. 2. No lymphadenopathy. 3. Redemonstration of the L3 vertebral body lesions which are similar to the prior exam. No associated abnormal FDG uptake. 4. No change in the 1.9 cm left thyroid nodule. Electronically signed by: Ric Crawford M.D. 11/14/2016 4:27 PM Dictated Date/Time: 11/13/2016 11:59 AM
== END | disposition home or self-care (01) ==
LOC: C.PET 09:11
PROVIDERS: ATTEND Internal Medicine Hematology & Oncology
DX: C85.10 Unspecified B-cell lymphoma, unspecified site (principal)

== ENCOUNTER → 2017-01-25 | Day surgery (SDC) | payer BC ==
[2017-01-03 14:36] VITALS: Ht 186.7 cm; Wt 93.2 kg
[~2017-01-25] VITALS: Ht 186.7 cm; Wt 93.2 kg
[~2017-01-25] MED LIST changes: +IOPAMIDOL INJ 61% 15 ML VIAL ONE; +LIDOCAINE HCL 1% MPF 5 ML VIAL ONE; +SODIUM CHLORIDE 0.9% INJ 10 ML VIAL ONE
[2017-01-25 13:57] VITALS: BP 110/72; PULSE 85; TEMP 36.7; O2SAT 99
== END | disposition home or self-care (01) ==
LOC: X.SURG 13:39
PROVIDERS: ATTEND Physical Medicine & Rehabilitation
DX: M54.16 Radiculopathy, lumbar region (principal); Z53.8 Procedure and treatment not carried out for other reasons

== ENCOUNTER → 2017-02-06 | Outpatient (CLI) | payer BC ==
[~2017-02-06] MED LIST changes: -IOPAMIDOL INJ 61% 15 ML VIAL ONE; -LIDOCAINE HCL 1% MPF 5 ML VIAL ONE; -MULT-506 PO; -OXYC1TAB3 PO; -PROP40TA5 PO; -SODIUM CHLORIDE 0.9% INJ 10 ML VIAL ONE
[2017-02-06 17:36] LABS: BASO % 0.3 %; BASO ABS # 0.02 K/uL (0-0.2); COMPLETE YES; EOS % 0.9 %; HEMATOCRIT 41.3 % (42-52); IG% 0.2 %; LYMPH % 23.4 %; LYMPH ABS # 1.37 K/uL (1.2-3.4); MEAN CELL VOLUME 88.8 fL (80-100); MEAN CORPUSCULAR HEMOGLOBIN 31.2 pg (25-34); MEAN CORPUSCULAR HGB CONC 35.1 g/dl (32-36); MEAN PLATELET VOLUME 10.3 fL (7.4-10.4); MONO % 9.9 %; NEUT % 65.3 %; PLATELET COUNT 216 K/uL (130-400); RED BLOOD COUNT 4.65 M/uL (4.7-6.1); WHITE BLOOD COUNT 5.85 K/uL (4.8-10.8)
[2017-02-06 18:01] LABS: BLOOD UREA NITROGEN 15 mg/dl (7-18); BUN/CREATININE RATIO 11.5 (10-20); CALCIUM 9.2 mg/dl (8.5-10.1); CARBON DIOXIDE 27 mmol/L (21-32); CHLORIDE 107 mmol/L (98-107); GLUCOSE 81 mg/dl (70-99); POTASSIUM 3.9 mmol/L (3.5-5.1); SODIUM 141 mmol/L (136-145)
== END | disposition home or self-care (01) ==
LOC: C.LAB1850 16:10
PROVIDERS: ATTEND Surgery
DX: C85.10 Unspecified B-cell lymphoma, unspecified site (principal); Z45.2 Encounter for adjustment and management of vascular access device

== ENCOUNTER → 2017-02-09 | Day surgery (SDC) | payer BC ==
[2017-01-03 14:29] VITALS: Ht 186.7 cm; Wt 93.2 kg
[~2017-02-09] VITALS: Ht 186.7 cm; Wt 93.2 kg
[~2017-02-09] MED LIST changes: +ATROPINE SULFATE 0.1 MG/ML 5ML SYR IV PRN; +FENTANYL CITRATE INJ 50 MCG/1 ML 2 ML VIAL ONE; +KETOROLAC TROMETHAMINE 30 MG/ML VIAL IV. PRN; +LACTATED RINGER'S 1000ML 1,000 ML IV SCH; +LIDOCAINE HCL 2% 2 ML VIAL (20MG/ML) ONE; +LIDOCAINE MPF 1% INJ 30 ML SDV (L&D) INFIL ONE; +MIDAZOLAM HCL 1 MG/ML 2ML VIAL ONE; +MULT-506 PO; +ONDANSETRON INJ 2 MG/ML 2 ML VIAL IV PRN; +OXYC1TAB3 PO; +OXYCODONE/ACETAMINOPHEN 5-325 TAB PO PRN; +PROP40TA5 PO; +PROPOFOL IV EMULSION 10 MG/ML 20 ML VIAL IV ONE; +SODIUM CHLORIDE 0.9% 1000ML 1,000 ML IV SCH
--- NOTE | 2017-02-09 06:58 | History and Physical: Surg Cnt ---
History & Physical Date Feb 09, 2017. Chief Complaint exhausted a port left chest History of Present Illness The patient is a 41 year old male with complaints of exhausted a port for chemo Past Medical/Surgical History Medical Problems: (1) Anxiety (2) B-cell lymphoma (3) Fracture of L3 vertebra Additional History Hepatic Disease: No Endocrine Disorder: No Kidney Disease: No Hypertension: No Heart Disease: No Bleeding Tendencies: No Infectious Diseases: No Allergies Coded Allergies: Iodinated Diagnostic Agents (Verified Allergy, Unknown, THROAT SWELLS, HIVES, 02/09/17) Home Medications Scheduled Amitriptyline HCl (Amitriptyline HCl), 25 MG PO HS Calcium Carbonate (Calcium), 1,200 MG PO DAILY Cholecalciferol (Vitamin D3), 5,000 INTER.UNIT PO QAM Meloxicam (Meloxicam), 15 MG PO QAM Sertraline HCl (Sertraline HCl), 200 MG PO QAM Scheduled PRN Albuterol Hfa (Ventolin Hfa), 2-4 PUFFS INH Q6H PRN for Shortness of Breath Clonazepam (Klonopin), 0.5 MG PO BID PRN for Anxiety Physical Examination Skin: warm/dry, no rash Eyes: normal inspection, EOMI, sclerae normal ENT: normal ENT inspection, pharynx normal Head: normocephalic, atraumatic Neck: supple, no adenopathy, trachea midline Respiratory/Chest: lungs clear, normal breath sounds, no respiratory distress Cardiovascular: regular rate, rhythm, no edema, no murmur Abdomen / GI: normal bowel sounds, non tender Extremities: normal inspection, normal range of motion Neurologic/Psych: no motor/sensory deficits, alert, normal reflexes, oriented x 3 Addiitonal Comments: a port left ant chest free of infection Diagnosis a port ASA Classification: ASA Class I Plan of Treatment removal a-port
[2017-02-09 07:38] VITALS: TEMP 36.9
--- NOTE | 2017-02-09 07:49 | Discharge Instructions-SurgCtr ---
Discharge Instructions Date of Service Feb 09, 2017. Visit Reason for Visit: B-Cell Lymphoma, Venous Access Device Discharge Discharge Diagnosis / Problem: B-Cell Lymphoma, Venous Access Device Discharge Goals Goal(s): Decrease discomfort, Improve function Medications Stopped Medications Name(s): Meloxicam stopped 5 days ago Activity Recommendations Activity Limitations: as noted below Lifting Limitations: no more than 10 pounds Exercise/Sports Limitations: until after follow-up appointment May Resume Sexual Activity: after follow-up appointment Shower/Bathe: tomorrow Driving or Machine Use: resume 1 day after discharge Anesthesia . Post Anesthesia Instructions: If you have had General Anesthesia or IV Sedation: * Do not drive today. * Resume driving when surgeon permits. * Do not make important decisions or sign legal documents today. * Call surgeon for: 1. Temperature elevations greater than 101 degrees F. 2. Uncontrollable pain. 3. Excessive bleeding. 4. Persistent nausea and vomiting. 5. Medication intolerance (nausea, vomiting or rash). * For nausea and vomiting use only clear liquids such as: tea, soda, bouillon until nausea subsides, then gradually increase diet as tolerated. * If you have any concerns or questions, call your surgeon's office. If physician is unavailable and it is an emergency, call 911 or go to the nearest emergency room. . Instructions / Follow-Up Instructions / Follow-Up If you are experiencing pain, you may use over the counter Ibuprofen products such as Advil, Aleve. You may remove your dressing and shower tomorrow. Please follow-up with Dr. Corey next week in the office. Please call the office at [phone] to make an appointment. At this visit you will have your sutures removed. Our office is located at [address] [place], [place] [address]. Diet Recommendations Home Diet: no limitations, resume previous diet Procedures Procedures Performed: Removal Of A-Port Pending Studies Studies pending at discharge: no Medical Emergencies . Who to Call and When: Medical Emergencies: If at any time you feel your situation is an emergency, please call 911 immediately. . Non-Emergent Contact Non-Emergency issues call your: Primary Care Provider, Surgeon . . "Provider Documentation" section prepared by Yanely Olmos. .
--- NOTE | 2017-02-09 07:51 | [facility] Operative Report ---
Operative Report Operative Date Feb 09, 2017. Pre-Operative Diagnosis B-Cell Lymphoma, Exhausted A-Port for Chemo Post-Operative Diagnosis same Procedure(s) Performed removal mri port left ant chest Surgeon Dr. Corey Nurses Aide Surgeon(s) Mellissa Olmos PA-C Estimated Blood Loss 1.5 ml Findings as preop Specimens A.) Explanted A-Port Anesthesia 1%xyl(8cc) and iv sedation Indications exhausted a port Description of Procedure sterile 1% xyl and iv sedation removed a port intact sent to path, wound closed with 2-0 dexon running sub cut and continuos vertical matrix 2-0 nylon pressure held subclavian are through out procedure I attest to the content of the Intraoperative Record and any orders documented therein. Any exceptions are noted below.
--- NOTE | 2017-02-09 07:58 | Anesthesia Progress Nt - [facility] ---
Anesthesia Post Op Note Date & Time Feb 09, 2017 at 07:58 Vital Signs Pain Intensity: 1 Vital Signs Past 12 Hours Date Time Temp Pulse Resp B/P (MAP) Pulse Ox O2 Delivery O2 Flow Rate FiO2 02/09/17 07:38 36.9 88 16 116/75 (89) 98 Room Air 02/09/17 06:31 36.6 73 16 122/85 (97) 100 Room Air Notes Mental Status: alert / awake / arousable, participated in evaluation Pt Amnestic to Procedure: Yes Nausea / Vomiting: adequately controlled Pain: adequately controlled Airway Patency, RR, SpO2: stable & adequate BP & HR: stable & adequate Hydration State: stable & adequate Anesthetic Complications: no major complications apparent
[2017-02-09 08:00] VITALS: BP 128/86; PULSE 76; O2SAT 100
== END | disposition home or self-care (01) ==
LOC: X.SURG 06:15
PROVIDERS: ATTEND Surgery
DX: Z45.2 Encounter for adjustment and management of vascular access device (principal); C85.10 Unspecified B-cell lymphoma, unspecified site; F41.9 Anxiety disorder, unspecified; Z79.899 Other long term (current) drug therapy

== ENCOUNTER → 2017-04-05 | Day surgery (SDC) | payer BC ==
[2017-03-20 10:56] VITALS: Ht 186.7 cm; Wt 95.5 kg
[~2017-04-05] VITALS: Ht 186.7 cm; Wt 95.5 kg
[~2017-04-05] MED LIST changes: -ATROPINE SULFATE 0.1 MG/ML 5ML SYR IV PRN; -FENTANYL CITRATE INJ 50 MCG/1 ML 2 ML VIAL ONE; +IOPAMIDOL INJ 61% 15 ML VIAL ONE; -KETOROLAC TROMETHAMINE 30 MG/ML VIAL IV. PRN; -LACTATED RINGER'S 1000ML 1,000 ML IV SCH; +LIDOCAINE HCL 1% MPF 5 ML VIAL ONE; -LIDOCAINE HCL 2% 2 ML VIAL (20MG/ML) ONE; -LIDOCAINE MPF 1% INJ 30 ML SDV (L&D) INFIL ONE; -MIDAZOLAM HCL 1 MG/ML 2ML VIAL ONE; -ONDANSETRON INJ 2 MG/ML 2 ML VIAL IV PRN; -OXYCODONE/ACETAMINOPHEN 5-325 TAB PO PRN; -PROPOFOL IV EMULSION 10 MG/ML 20 ML VIAL IV ONE; -SODIUM CHLORIDE 0.9% 1000ML 1,000 ML IV SCH; +SODIUM CHLORIDE 0.9% INJ 10 ML VIAL ONE
[2017-04-05 14:20] VITALS: TEMP 36.7
--- NOTE | 2017-04-05 14:27 | Discharge Instructions ---
Discharge Instructions Date of Service Apr 05, 2017. Visit Reason for Visit: Lumbosacral Radiculopathy Discharge Discharge Diagnosis / Problem: right leg pain Discharge Goals Goal(s): Decrease discomfort, Improve function Medications Stopped Medications Name(s): meloxicam stopped. last dose last friday 03/30 Activity Recommendations Activity Limitations: resume your previous activity Anesthesia . Post Anesthesia Instructions: If you have had General Anesthesia or IV Sedation: * Do not drive today. * Resume driving when surgeon permits. * Do not make important decisions or sign legal documents today. * Call surgeon for: 1. Temperature elevations greater than 101 degrees F. 2. Uncontrollable pain. 3. Excessive bleeding. 4. Persistent nausea and vomiting. 5. Medication intolerance (nausea, vomiting or rash). * For nausea and vomiting use only clear liquids such as: tea, soda, bouillon until nausea subsides, then gradually increase diet as tolerated. * If you have any concerns or questions, call your surgeon's office. If physician is unavailable and it is an emergency, call 911 or go to the nearest emergency room. . Diet Recommendations Recommended Home Diet: resume previous diet Procedures Procedures Performed: LUMBAR EPIDURAL STEROID INJECTION Pending Studies Studies pending at discharge: no Medical Emergencies . Who to Call and When: Medical Emergencies: If at any time you feel your situation is an emergency, please call 911 immediately. . Non-Emergent Contact Non-Emergency issues call your: Specialist . . "Provider Documentation" section prepared by Jose Francisco Sparks. .
[2017-04-05 14:33] VITALS: BP 136/85; PULSE 71; O2SAT 100
--- NOTE | 2017-04-05 15:05 | OPERATIVE REPORT ---
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 POSTOPERATIVE DIAGNOSIS: Same. PROCEDURE: Right paramedian L4-L5 intralaminar epidural steroid injection under fluoroscopic guidance. SURGEON: Dr. Jose Francisco Sparks. INDICATIONS: The patient is a 41-year-old white male who had previously received an epidural injection to address his L4 radiculopathy. Unfortunately, he was on an NSAID and was unable to have it done. He presents today for relief of L4 radicular pain via an epidural injection. His most recent PET scanning showed no new tumor activity in and around this region. PHYSICAL EXAMINATION: Pleasant male seated comfortably. He had some soreness to palpation of the mid axial L4 region. He had no focal weakness, intact sensation with negative seated straight leg raises. CONSENT: Verbal and written consent was obtained from the patient. Risks and benefits were reviewed. Risks include but are not limited to epidural abscess, epidural hematoma, allergic reaction, dural puncture. The patient wishes to proceed. PROCEDURE: The patient was taken back to the special procedures room of the [facility] where he was maintained in a prone position. Backside was cleansed with Betadine x3 and a dry sterile dressing was applied. Fluoroscope was used to identify the L4-L5 interlaminar space. Overlying skin on the right side was anesthetized with 4 mL of lidocaine 1% with a 25 gauge 1.5-inch needle. A 22-gauge 3.5 inch spinal needle was then directed under fluoroscopic guidance into the epidural area. It was advanced under lateral fluoroscopic guidance with a loss of resistance was noted at a depth of 6.5 cm. Isovue 300 contrast was not utilized given his IVP allergy and the tip of the needle was confirmed in terms of the anticipated location and he underwent injection after negative aspiration of 40 mg of Depo-Medrol, 4 mL of preservative free sodium chloride. Injection was well tolerated. DISPOSITION: 1. The patient is taken out into the discharge recovery area where he will be discharged home once discharge criteria have been met. 2. Follow up in the [facility] office in 2-4 weeks. I attest to the content of the Intraoperative Record and any orders documented therein. Any exception s are noted below.
== END | disposition home or self-care (01) ==
LOC: X.SURG 12:59
PROVIDERS: ATTEND Physical Medicine & Rehabilitation
DX: M54.16 Radiculopathy, lumbar region (principal); C85.10 Unspecified B-cell lymphoma, unspecified site

== ENCOUNTER 2017-05-04 12:23 | Emergency (ER) | payer BC ==
[~2017-05-04] VITALS: Ht 185.4 cm; Wt 95.0 kg
[~2017-05-04 12:23] MED LIST changes: -IOPAMIDOL INJ 61% 15 ML VIAL ONE; -LIDOCAINE HCL 1% MPF 5 ML VIAL ONE; -OXYC1TAB3 PO; -PROP40TA5 PO; -SODIUM CHLORIDE 0.9% INJ 10 ML VIAL ONE
[2017-05-04 12:26] VITALS: TEMP 36.5; Ht 185.4 cm; Wt 95.0 kg
[2017-05-04] MEDS ORDERED: SODIUM CHLORIDE 0.9% 1000ML 1,000 ML IV STA (13:01)
[2017-05-04] MEDS ORDERED: ONDANSETRON INJ 2 MG/ML 2 ML VIAL IV STA (13:01)
--- NOTE | 2017-05-04 13:10 | EMERGENCY ROOM VISIT NOTE ---
History Report prepared by Ben: Michael Dorsey Under the Supervision of: Dr. David Lunsford D.O. 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 He says that he has chronic back pain from the lymphoma that was diagnosed in 2014, and is on medication for it, but during the past couple days, the pain has worsened a lot, and is all over the back. He states that he got sick twice today from how bad his pain is. The patient notes that he normally sees Dr. Palomino, but was transitioned to a new doctor in the office recently. He says that he had an injection 4 weeks ago for pain, but it only lasted for a week. He states that his last back imaging was 6 months ago, but has an appointment next week with Dr. Palomino's office to discuss further imaging. He denies any urinary symptoms, abdominal pain, or leg swelling. He notes that he has had chronic numbness in the right leg for a year. Source of History: patient Onset: A couple days ago Position: back Symptom Intensity: pain made him sick twice today Timing: worsening Associated Symptoms: No abdominal pain, No urinary symptoms Note: Associated symptoms: Has chronic right leg numbness. Denies leg swelling. Review of Systems See HPI for pertinent positives & negatives. A total of 10 systems reviewed and were otherwise negative. Past Medical & Surgical Medical Problems: (1) Anxiety (2) B-cell lymphoma (3) Fracture of L3 vertebra Family History Cancer Diabetes mellitus Heart disease Hypertension Seizures Social History Smoking Status: Never Smoker Alcohol Use: occasionally Drug Use: none Marital Status: Housing Status: lives with family Occupation Status: employed Current/Historical Medications Scheduled Amitriptyline HCl (Amitriptyline HCl), 25 MG PO HS Cholecalciferol (Vitamin D3), 5,000 INTER.UNIT PO QAM Meloxicam (Meloxicam), 15 MG PO QAM Multivitamin (Multivitamin), 1 TAB PO DAILY Sertraline HCl (Sertraline HCl), 200 MG PO QAM Scheduled PRN Albuterol Hfa (Ventolin Hfa), 2-4 PUFFS INH Q6H PRN for Shortness of Breath Clonazepam (Klonopin), 0.5 MG PO BID PRN for Anxiety Oxycodone Ir (Roxicodone Ir), 1-2 TAB PO Q4H PRN for Severe Pain Propranolol Hcl (Propranolol Hcl), 40 MG PO HS PRN for Sleep Allergies Coded Allergies: Iodinated Diagnostic Agents (Verified Allergy, Unknown, THROAT SWELLS, HIVES, 05/04/17) Physical Exam Vital Signs Date Time Temp Pulse Resp B/P (MAP) Pulse Ox O2 Delivery O2 Flow Rate FiO2 05/04/17 15:55 64 18 107/67 99 05/04/17 14:30 68 16 112/63 98 Room Air 05/04/17 12:26 36.5 60 16 115/79 100 Room Air Physical Exam GENERAL: Patient is awake, alert, and in no acute distress. Patient is resting comfortably and showing no signs of anxiety EYES: The conjunctivae are clear. The pupils are round and reactive. EARS, NOSE, MOUTH AND THROAT: The nose is without any evidence of any deformity. Mucous membranes are moist tongue is midline NECK: The neck is nontender and supple. RESPIRATORY: Normal respiratory effort is noted there is no evidence of wheezing rhonchi or rales CARDIOVASCULAR: Regular rate and rhythm noted there no murmurs rubs or gallops normal S1 normal S2 GASTROINTESTINAL: The abdomen is soft. Bowel sounds are present in all quadrants. Abdomen is nontender BACK: Low lumbar tenderness to palpation, range of motion appeared intact, no stepoff. MUSCULOSKELETAL/EXTREMITIES: There is no evidence of gross deformity full range of motion is noted in the hips and shoulders SKIN: There is no obvious evidence of any rash. There are no petechiae, pallor or cyanosis noted. NEUROLOGIC: Patient is awake alert and oriented x3, strength was symmetric, patellar tendon reflexes were 1+ bilaterally, Achilles tendon reflexes were 1+ bilaterally. Great toe raise was symmetric. Medical Decision & Procedures ER Provider Diagnostic Interpretation: MRI results as stated below per my review and radiologist interpretation. MRI LUMBAR SPINE W/O CONTRAST CLINICAL HISTORY: Low back pain with right leg tingling. History of L3 lymphoma status post chemotherapy and radiation therapy. TECHNIQUE: Sagittal and axial T1, T2 and STIR images were obtained. COMPARISON STUDY: 08/29/2016, PET/CT scan dated 11/13/2016 OBSERVATIONS: There is increased T1 signal involving the L2, L3, and L4 vertebral bodies, likely secondary to prior radiation therapy. There are persistent areas of marrow replacement involving the right lateral aspect of the L3 vertebral body measuring 20 mm and 12 mm respectively. These lesions demonstrate decreased T1 signal with small areas of increased T2 signal. There is secondary loss in height of the right lateral aspect of the L3 vertebra. L1-2: No disc protrusions or extrusions. No evidence of spinal canal or neural foraminal compromise. L2-3: No disc protrusions or extrusions. No evidence of spinal canal or neural foraminal compromise. L3-4: There is a mild circumferential disc bulge. There is no significant spinal stenosis. There is moderate right-sided foraminal narrowing. L4-5: There is a minimal circumferential disc bulge. There is no significant spinal or foraminal stenosis. L5-S1: No disc protrusions or extrusions. No evidence of spinal canal or neural foraminal compromise. The conus medullaris and cauda equina appear normal. IMPRESSION: No significant change in the appearance of the right L3 vertebral body lesions. There is persistent right-sided foraminal narrowing at the L3-4 level. There are marrow signal changes consistent with prior radiation therapy at the L2, L3, and L4 levels. Electronically signed by: Steffen Gusman M.D. 05/04/2017 2:17 PM Dictated Date/Time: 05/04/2017 2:09 PM Laboratory Results 05/04/17 13:20 Red Blood Count 4.78, Mean Corpuscular Volume 85.8, Mean Corpuscular Hemoglobin 31.4, Mean Corpuscular Hemoglobin Concent 36.6, Mean Platelet Volume 10.0, Neutrophils (%) (Auto) 62.7, Lymphocytes (%) (Auto) 25.6, Monocytes (%) (Auto) 10.4, Eosinophils (%) (Auto) 0.7, Basophils (%) (Auto) 0.2, Neutrophils # (Auto ) 3.45, Lymphocytes # (Auto) 1.41, Monocytes # (Auto) 0.57, Eosinophils # (Auto ) 0.04, Basophils # (Auto) 0.01 05/04/17 13:20 Test 05/04/17 13:20 White Blood Count 5.50 K/uL (4.8-10.8) Red Blood Count 4.78 M/uL (4.7-6.1) Hemoglobin 15.0 g/dL (14.0-18.0) Hematocrit 41.0 % (42-52) Mean Corpuscular Volume 85.8 fL (80-100) Mean Corpuscular Hemoglobin 31.4 pg (25-34) Mean Corpuscular Hemoglobin Concent 36.6 g/dl (32-36) Platelet Count 235 K/uL (130-400) Mean Platelet Volume 10.0 fL (7.4-10.4) Neutrophils (%) (Auto) 62.7 % Lymphocytes (%) (Auto) 25.6 % Monocytes (%) (Auto) 10.4 % Eosinophils (%) (Auto) 0.7 % Basophils (%) (Auto) 0.2 % Neutrophils # (Auto) 3.45 K/uL (1.4-6.5) Lymphocytes # (Auto) 1.41 K/uL (1.2-3.4) Monocytes # (Auto) 0.57 K/uL (0.11-0.59) Eosinophils # (Auto) 0.04 K/uL (0-0.5) Basophils # (Auto) 0.01 K/uL (0-0.2) RDW Standard Deviation 41.1 fL (36.4-46.3) RDW Coefficient of Variation 13.2 % (11.5-14.5) Immature Granulocyte % (Auto) 0.4 % Immature Granulocyte # (Auto) 0.02 K/uL (0.00-0.02) Urine Color YELLOW Urine Appearance CLEAR (CLEAR) Urine pH 5.5 (4.5-7.5) Urine Specific [place] 1.013 (1.000-1.030) Urine Protein NEG (NEG) Urine Glucose (UA) NEG (NEG) Urine Ketones NEG (NEG) Urine Occult Blood NEG (NEG) Urine Nitrite NEG (NEG) Urine Bilirubin NEG (NEG) Urine Urobilinogen NEG (NEG) Urine Leukocyte Esterase NEG (NEG) Anion Gap 6.0 mmol/L (3-11) Est Creatinine Clear Calc Drug Dose 110.9 ml/min Estimated GFR () 108.6 Estimated GFR (Non- 93.7 BUN/Creatinine Ratio 11.1 (10-20) Calcium Level 9.2 mg/dl (8.5-10.1) Total Bilirubin 1.4 mg/dl (0.2-1) Direct Bilirubin 0.3 mg/dl (0-0.2) Aspartate Amino Transf (AST/SGOT) 23 U/L (15-37) Alanine Aminotransferase (ALT/SGPT) 45 U/L (12-78) Alkaline Phosphatase 58 U/L (45-117) Total Protein 7.5 gm/dl (6.4-8.2) Albumin 4.1 gm/dl (3.4-5.0) Laboratory results per my review. Medications Administered Medications (Trade) Dose Ordered Sig/Aris Route Start Time Stop Time Status Last Admin Dose Admin Sodium Chloride 1,000 ml @ 999 mls/hr Q1H1M STAT IV 05/04/17 13:01 05/04/17 14:01 DC 05/04/17 13:24 999 MLS/HR Ondansetron HCl (Zofran Inj) 4 mg NOW STAT IV 05/04/17 13:01 05/04/17 13:03 DC 05/04/17 13:24 4 MG Morphine Sulfate (MoRPHine SULFATE INJ) 4 mg Q15M PRN IV 05/04/17 13:15 05/04/17 16:13 DC 05/04/17 14:52 4 MG ED Course 1258: The patient was evaluated in room B4B. A complete history and physical examination were performed. 1301: Ordered Zofran Inj 4 mg IV, NSS 1000 ml @ 999 mls/hr IV. 1315: Ordered Morphine Sulfate Inj 4 mg IV PRN. 1435: Upon reevaluation, the patient is resting. I discussed the results and treatment plan with him. He verbalized agreement of the treatment plan. He was discharged home. Medical Decision Differential diagnosis: Etiologies such as musculoskeletal, disc herniation, fracture, aortic disease, metastatic disease, cord compression, discitis, infection, renal colic, gastrointestinal, acute exacerbation of chronic back pain, sciatica, cauda equina, as well as others were entertained. Nursing notes reviewed. The patient's previous electronic medical records reviewed. The patient is a 41-year-old male who presented to the emergency department for an evaluation of low back pain. The patient does have a history of chronic low back pain however he states this pain is worsened compared to previous pain. 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 He denies having any worsening of his numbness in his legs or bowel or bladder incontinence. The patient was able to ambulate without difficulty. I discussed the patient's laboratory and radiographic studies with him. MRI of the lumbar spine shows no changes compared to previous. He was treated with IV pain medication and IV antiemetics. He was reevaluated multiple times. He was encouraged to rest and avoid any strenuous activity. He was also encouraged to call his family to schedule a follow-up appointment. He was also encouraged to return the emergency Department immediately if symptoms change worsen or the need arises. Medication Reconcilliation Current Medication List: was personally reviewed by me Blood Pressure Screening Patient's blood pressure: Normal blood pressure Impression Primary Impression: Acute low back pain Scribe Attestation The scribe's documentation has been prepared under my direction and personally reviewed by me in its entirety. I confirm that the note above accurately reflects all work, treatment, procedures, and medical decision making performed by me. Departure Information Dispostion Home / Self-Care Prescriptions Oxycodone Ir (Roxicodone Ir) 5 Mg Tab 1-2 TAB PO Q4H Y for Severe Pain, #20 TAB Prov: David Lunsford, DO 05/04/17 Referrals No Doctor, Assigned (PCP) Forms HOME CARE DOCUMENTATION FORM, IMPORTANT VISIT INFORMATION, Work Instructions Patient Instructions Lumbar Pain Causes, My [facility] Additional Instructions Continue all medications as prescribed. Rest and avoid any strenuous activity. Call your family to schedule a follow-up appointment. Avoid any heavy lifting or strenuous activity. Problem Qualifiers Primary Impression: Acute low back pain Back pain laterality: midline Sciatica presence: unspecified whether sciatica present Qualified Codes: M54.5 - Low back pain
[2017-05-04] MEDS: MoRPHine SULFATE 4 MG/ML 1 ML CARP\\VIAL IV PRN ×2 (13:24→14:52)
[2017-05-04 13:37] LABS: BASO % 0.2 %; BASO ABS # 0.01 K/uL (0-0.2); COMPLETE YES; EOS % 0.7 %; IG% 0.4 %; LYMPH % 25.6 %; LYMPH ABS # 1.41 K/uL (1.2-3.4); MEAN CELL VOLUME 85.8 fL (80-100); MEAN CORPUSCULAR HEMOGLOBIN 31.4 pg (25-34); MEAN CORPUSCULAR HGB CONC 36.6 g/dl (32-36); MONO % 10.4 %; NEUT % 62.7 %; PLATELET COUNT 235 K/uL (130-400); RED BLOOD COUNT 4.78 M/uL (4.7-6.1)
[2017-05-04 13:41] LABS: MANUAL MICROSCOPIC REQUIRED? NO; REVIEW REQ? NO; URINE APPEARANCE CLEAR (CLEAR); URINE BILIRUBIN NEG (NEG); URINE COLOR YELLOW; URINE NITRITE NEG (NEG); URINE PH 5.5 (4.5-7.5); URINE SPECIFIC GRAVITY 1.013 (1.000-1.030); UROBILINOGEN NEG (NEG)
[2017-05-04 13:56] LABS: BUN/CREATININE RATIO 11.1 (10-20); CALCIUM 9.2 mg/dl (8.5-10.1); POTASSIUM 3.6 mmol/L (3.5-5.1)
--- NOTE | 2017-05-04 14:18 | DIAGNOSTIC IMAGING REPORT ---
MRI LUMBAR SPINE W/O CONTRAST CLINICAL HISTORY: Low back pain with right leg tingling. History of L3 lymphoma status post chemotherapy and radiation therapy. TECHNIQUE: Sagittal and axial T1, T2 and STIR images were obtained. COMPARISON STUDY: 08/29/2016, PET/CT scan dated 11/13/2016 OBSERVATIONS: There is increased T1 signal involving the L2, L3, and L4 vertebral bodies, likely secondary to prior radiation therapy. There are persistent areas of marrow replacement involving the right lateral aspect of the L3 vertebral body measuring 20 mm and 12 mm respectively. These lesions demonstrate decreased T1 signal with small areas of increased T2 signal. There is secondary loss in height of the right lateral aspect of the L3 vertebra. L1-2: No disc protrusions or extrusions. No evidence of spinal canal or neural foraminal compromise. L2-3: No disc protrusions or extrusions. No evidence of spinal canal or neural foraminal compromise. L3-4: There is a mild circumferential disc bulge. There is no significant spinal stenosis. There is moderate right-sided foraminal narrowing. L4-5: There is a minimal circumferential disc bulge. There is no significant spinal or foraminal stenosis. L5-S1: No disc protrusions or extrusions. No evidence of spinal canal or neural foraminal compromise. The conus medullaris and cauda equina appear normal. IMPRESSION: No significant change in the appearance of the right L3 vertebral body lesions. There is persistent right-sided foraminal narrowing at the L3-4 level. There are marrow signal changes consistent with prior radiation therapy at the L2, L3, and L4 levels. Electronically signed by: Steffen Gusman M.D. 05/04/2017 2:17 PM Dictated Date/Time: 05/04/2017 2:09 PM
[2017-05-04] MEDS ORDERED: OXYC1TAB3 PO (14:40)
[2017-05-04] MEDS ORDERED: PROP40TA5 PO (14:45)
[2017-05-04 15:55] VITALS: BP 107/67; PULSE 64; O2SAT 99
== END 2017-05-04 15:56 | disposition home or self-care (01) ==
LOC: C.EDB 12:25
DX: M54.5 Low back pain (principal); G89.29 Other chronic pain; C85.10 Unspecified B-cell lymphoma, unspecified site; F41.9 Anxiety disorder, unspecified; Z83.3 Family history of diabetes mellitus; Z82.49 Family history of ischemic heart disease and other diseases of the circulatory system; Z82.0 Family history of epilepsy and other diseases of the nervous system

== ENCOUNTER → 2017-07-25 | Outpatient (CLI) | payer BC ==
[~2017-07-25] MED LIST changes: -CALC-393 PO; +OXYC1TAB3 PO; +PROP40TA5 PO
--- NOTE | 2017-07-25 11:13 | DIAGNOSTIC IMAGING REPORT ---
PET/CT HISTORY: LYMPHOMA TECHNIQUE: PET/CT was performed from the base of the skull through the pelvis following the intravenous administration of 13.97 mCi of F18-FDG. Non-contrast CT imaging was performed over the same range without breath-hold for attenuation correction of PET images and anatomic correlation, but not for primary interpretation as it is not of standard diagnostic quality. CT DOSE: COMPARISON: PET CT 11/13/2016. FINDINGS: HEAD AND NECK: There is no FDG-avid disease or significant lymphadenopathy in the imaged portions of the head and the neck. A 2 cm hypodense left lobe thyroid nodule is again noted which does not demonstrate significant FDG uptake. FDG uptake within the oropharynx and tongue remains unchanged is likely physiologic. CHEST: There is no FDG-avid disease in the chest. There is no axillary, mediastinal, or hilar lymphadenopathy. There is no pleural or pericardial effusion. There is no air-space disease or suspicious lung nodule. ABDOMEN/PELVIS: Below the diaphragm, tracer is distributed physiologically in the gastrointestinal and genitourinary tracts. There is no significant lymphadenopathy and no FDG-avid disease. Left-sided IVC. MUSCULOSKELETAL: No abnormal skeletal uptake is identified. Note is again made of the pathologic L3 fracture with 2 lesions noted along the right aspect of the L3 vertebral body. The appearance is similar to prior PET/CT. This does not demonstrate abnormal FDG uptake. IMPRESSION: 1. No abnormal FDG uptake identified. 2. No lymphadenopathy. 3. Redemonstration of the L3 vertebral body lesions which are similar to the prior exam. No associated abnormal FDG uptake. 4. No change in the 2 cm left thyroid nodule. Electronically signed by: Ric Crawford M.D. 07/25/2017 11:12 AM Dictated Date/Time: 07/25/2017 10:19 AM
== END | disposition home or self-care (01) ==
LOC: C.PET 07:53
PROVIDERS: ATTEND Nurse Practitioner Family
DX: C85.10 Unspecified B-cell lymphoma, unspecified site (principal)

== ENCOUNTER → 2017-08-10 | Outpatient (CLI) | payer BC ==
[~2017-08-10] MED LIST changes: -CLON0.5T3 PO; +GADAVIST IV PRN; +KLN/5 PO; +MELO-83 PO; -MELO15TA4 PO; +OXYC-90 PO; -OXYC1TAB3 PO
--- NOTE | 2017-08-10 16:44 | DIAGNOSTIC IMAGING REPORT ---
LUMBAR SPINE COMBINATION CLINICAL HISTORY: 42 years-old Male presenting with SECONDARY MALIGNANT NEOPLASM OF BONE, primary bone lymphoma with L3 destruction, no cancer since December 01, 2015, pain across the low back mainly at the level of L3 and L5-S1, pain radiating into the right leg. TECHNIQUE: Multisequence, multiplanar MR imaging of the lumbar spine was performed before and after the administration of intravenous contrast. IV contrast: 9.5 mL of Gadavist. COMPARISON: 08/29/2016. FINDINGS: Localizer images: Unremarkable. Normal lumbar lordosis. The L3 vertebral body again demonstrates significant abnormality eccentrically on the right aspect with destructive changes along both the superior and inferior endplates with T2 hyperintense abnormal soft tissue. This does not demonstrate significant enhancement on postcontrast imaging. No increased extent of disease or new level of involvement. The L2-L4 vertebral bodies demonstrate greater fat content in the bone marrow consistent with post radiation change. Remaining vertebral bodies demonstrate normal bone marrow signal intensity. All vertebral bodies maintain normal height and alignment. Intervertebral disc spaces preserved though alteration of the discs eccentrically on the right at L2-3 and L3-4 associated with the destructive osseous change. Mild multilevel degenerative changes detailed below: L1 to: No significant neural foraminal or spinal canal narrowing. L2-3: Minimal disc bulge. No significant neural foraminal or spinal canal narrowing. L3-4: Mild disc bulge, ligamentum flavum hypertrophy, and destructive osseous change results in severe right and mild left neural foraminal narrowing. Mass effect on the exiting right L3 nerve root suggested. No significant spinal canal narrowing. L4-5: Mild disc bulge results in mild right and moderate left neural foraminal narrowing. The disc bulge may abut the transiting L5 nerve roots. No significant spinal canal narrowing. L5-S1: No significant neural foraminal or spinal canal narrowing. Spinal cord ends in good position at L1. Cauda equina normal in morphology. Paraspinal soft tissues within normal limits. Specifically, no significant soft tissue invasive component at the level of L3. The right psoas muscle is preserved. No epidural collection or abnormal soft tissue. IMPRESSION: 1. Stable appearance of the destructive changes at the level of L3, which could be compatible with reported primary lymphoma the bone. None enhancement and lack of progression suggest post radiation change. 2. Mild multilevel degenerative changes as detailed above. Notably, degenerative change in combination with the destructive osseous lesion at L3 results in severe right neural foraminal narrowing of L3-4 and mass effect on the exiting right L3 nerve root. Electronically signed by: Jose Craft M.D. 08/10/2017 4:42 PM Dictated Date/Time: 08/10/2017 4:33 PM
== END | disposition home or self-care (01) ==
LOC: C.MRI 15:25
PROVIDERS: ATTEND Internal Medicine Hematology & Oncology
DX: C79.51 Secondary malignant neoplasm of bone (principal); M51.36 Other intervertebral disc degeneration, lumbar region; M48.061 Spinal stenosis, lumbar region without neurogenic claudication

== ENCOUNTER → 2018-04-04 | Outpatient (CLI) | payer OTHER ==
[~2018-04-04] MED LIST changes: -OXYC-90 PO
--- NOTE | 2018-04-04 17:50 | DIAGNOSTIC IMAGING REPORT ---
R KNEE 1 OR 2 VIEWS ROUTINE CLINICAL HISTORY: 42 years-old Male presenting with KNEE PAIN. TECHNIQUE: Frontal and lateral views of the right knee were obtained. COMPARISON: 10/03/2016. FINDINGS: Knee joint congruent. No radiographic evidence of a knee joint effusion. No acute fracture or malalignment. No advanced degenerative change. No radiographic soft tissue abnormality. IMPRESSION: No acute osseous injury. Electronically signed by: Jose Craft M.D. 04/04/2018 5:48 PM Dictated Date/Time: 04/04/2018 5:48 PM
--- NOTE | 2018-04-04 18:43 | DIAGNOSTIC IMAGING REPORT ---
R LOWER EXT JOINT COMBO CLINICAL HISTORY: 42 years-old Male presenting with RT HIP PAIN, injury 2 months ago, pain radiating down the right leg to the knee, history of primary bone lymphoma in L3. TECHNIQUE: Multisequence, multiplanar MR imaging of the right hip was performed before and after the administration of intravenous contrast. IV contrast: 9.5 mL of Gadavist. COMPARISON: PET/CT from 07/25/2017 and lumbar spine MR from 08/10/2017. FINDINGS: Localizer images: Superior and inferior endplate abnormalities at L3 again noted eccentrically affecting the right aspect of the vertebral body. This may impinge upon the right L3-4 neural foramen (series 1 image 12). Bone marrow: Benign hemangioma noted in the left sacral ala. Otherwise normal bone marrow signal intensity. No bony edema. No enhancing lesion. Articular cartilage: Articular cartilage preserved. Labrum: Acetabular labrum intact. No evidence of labral tear, chondrolabral separation or paralabral cyst. Bursae: No pathologic distention of the iliopsoas or trochanteric bursae. Joint effusion: No significant hip joint effusion. Sciatic nerve: Normal appearance of the sciatic nerve. Muscle: Normal muscle bulk and muscle signal intensity. Superficial soft tissue: No subcutaneous edema. IMPRESSION: 1. No evidence of suspicious osseous lesion. No soft tissue abnormality of the right hip. 2. Redemonstration of the focal osseous changes at L3, which could be compatible with the known primary bone lymphoma of L3. Suspected right L3-4 neural foraminal narrowing. This may affect the exiting right L3 nerve root. Electronically signed by: Jose Craft M.D. 04/04/2018 6:42 PM Dictated Date/Time: 04/04/2018 6:34 PM
== END | disposition home or self-care (01) ==
LOC: C.MRI 17:12
PROVIDERS: ATTEND Nurse Practitioner
DX: M25.561 Pain in right knee (principal); M25.551 Pain in right hip